=== PATIENT | female | born 1955 | race Caucasian/White ===

== ENCOUNTER 2017-03-23 20:13 | Emergency (ER) | payer SELFPAY ==
[~2017-03-23] VITALS: Ht 160 cm; Wt 64.5 kg
[~2017-03-23 20:13] MED LIST: ATEN50TA PO; ATOR20TA38 PO; HYD25 PO; OMEP20CA9 PO
[2017-03-23 20:17] VITALS: Ht 160 cm; Wt 64.5 kg
== END 2017-03-23 23:51 | disposition left against medical advice (07) ==
LOC: E/R 20:13
DX: Z53.21 Procedure and treatment not carried out due to patient leaving prior to being seen by health care provider (principal)
CPT/HCPCS: 93005

== ENCOUNTER 2017-08-25 09:44 | Emergency (ER) | END 2017-08-25 11:43 | disposition home or self-care (01) ==

== ENCOUNTER 2018-01-20 16:47 | Emergency (ER) | END 2018-01-20 22:49 | disposition home or self-care (01) ==